=== PATIENT | male | born 1965 | race African-American/Black ===

== ENCOUNTER 2016-06-28 17:16 | Outpatient (CLI) | payer SELFPAY ==
--- NOTE | 2016-06-28 20:47 | RAD ---
RIGHT ANKLE THREE VIEWS 06/28/16 Comparison is made with the 06/05 study from [facility]. There has been an ORIF of a distal fibular fracture and screws reduce a medial malleolar fracture. T here has been no adverse change in alignment since the prior study. There is no sign of loosening of hardware. The overall appearance is an expected postoperative appearance. IMPRESSION: Postop ORIF with no adverse changes in the interval. POS: HOME
--- NOTE | 2016-06-28 21:25 | RAD ---
LEFT ELBOW TWO VIEWS 06/28/16 Comparison is made with a 06/05/16 study from [facility]. There has been an ORIF of comminuted fractures of the proximal ulna. There is no adverse change in a lignment over the interval. There is no sign of loosening of the plate. A small amount of callus is beginning to form but emphasis on very small. Bony fragments are seen around the joint, particularly medially as might be expected. IMPRESSION: Postop ORIF of comminuted proximal ulnar fracture. No adverse finding since the last study. POS: HOME
--- NOTE | 2016-06-28 21:37 | RAD ---
LEFT FEMUR TWO VIEWS 06/28/16 Comparison is made with a 06/05/16 study done at [facility]. There has been an ORIF of extensive comminuted distal femoral fractures. There has been no adverse c hange in alignment over the interval. There is no sign of loosening of the hardware. Some calcificat ion is forming along the medial aspect of the joint that could signify damage to the MCL. IMPRESSION: No adverse changes since the prior study. POS: HOME
== END 2016-06-28 17:17 | disposition home or self-care (01) ==
LOC: BURRAD 17:16
PROVIDERS: ATTEND Orthopaedic Surgery
DX: S72.92XD Unspecified fracture of left femur, subsequent encounter for closed fracture with routine healing (principal); S82.892D Other fracture of left lower leg, subsequent encounter for closed fracture with routine healing; S52.022D Displaced fracture of olecranon process without intraarticular extension of left ulna, subsequent encounter for closed fracture with routine healing

== ENCOUNTER 2016-07-16 16:18 | Outpatient (CLI) | payer SELFPAY ==
--- NOTE | 2016-07-16 19:28 | RAD ---
LEFT KNEE: Date: 07-16-16 FINDINGS: AP and lateral views are provided and compared with a 06-28-16 film of the femur. Any changes in the interval are minimal. The ORIF of the comminuted fracture of the distal femur sh ows no particular change in the interval. There is no sign of loosening of the hardware. The posit ion of the various fragments seems unchanged. Little internal healing of the fragments is apparent as of yet. There is ossification of the medial lateral ligament. The joint space seems normal. IMPRESSION: Minimal change in the appearance of the distal femoral fracture since 06-28. POS: HOME
== END 2016-07-16 16:19 | disposition home or self-care (01) ==
LOC: BURRAD 16:18
PROVIDERS: ATTEND Clinical Nurse Specialist Medical-Surgical
DX: Z91.81 History of falling (principal)

== ENCOUNTER 2018-05-14 04:43 | Emergency (ER) | payer OTHER, SELFPAY ==
[2018-05-14 05:23] LABS: Hemoglobin 13.4 g/dL (14.0-18.0); Mean Corpuscular Hemoglobin 28.4 pg (27.0-31.0); Mean Corpuscular Volume 83.5 fL (78.0-98.0); Mean Platelet Volume 7.5 fL (7.4-10.4); Platelet Count 354 thou/uL (130-400); RBC Distribution Width 12.8 % (11.5-14.5); Red Blood Cell (RBC) Count 4.72 mill/uL (4.70-6.10); White Blood Cell (WBC) Count 8.8 thou/uL (4.8-10.8)
[2018-05-14 05:29] LABS: ALT (SGPT) 13 U/L (8-55); AST (SGOT) 13 U/L (5-34); Albumin 4.3 g/dL (3.5-5.0); Alkaline Phosphatase 91 U/L (40-150); Anion Gap 14 mmol/L (10-20); BUN (Urea Nitrogen) 15 mg/dL (8.4-25.7); Bilirubin, Total 0.3 mg/dL (0.2-1.2); Calc. Creatinine Clearance 0 mL/min (70-130); Calcium 9.3 mg/dL (7.8-10.44); Carbon Dioxide 23 mmol/L (22-29); Chloride 108 mmol/L (98-107); Estimated GFR-MDRD Greater than 90; Globulin 3.1 g/dL (2.4-3.5); Glucose 107 mg/dL (70-105); Lipase 38 U/L (8-78); Potassium 4.1 mmol/L (3.5-5.1); Protein, Total 7.4 g/dL (6.0-8.3); Sodium 141 mmol/L (136-145)
[2018-05-14 05:48] LABS: Eosinophils 2 % (0-10); Lymphocytes 16 % (21-51); MDiff Complete? YES; Monocytes 5 % (0-10); Neutrophil 77 % (42-75)
--- NOTE | 2018-05-14 07:36 | RAD ---
PORTABLE CHEST: DATE: 05/14/2018. FINDINGS: Comparison is made with the prior study of 06/19/2016. The heart is normal in size. The mediastinum shows no widening or shift. No lobar consolidation or effusion was seen. There is evidence of old r ib fractures. Small nodules and similar pathology would be obscured on this portable film would best seen by CT. A vague nodular density in the left mid lung laterally was present previously and has n ot changed. IMPRESSION: Old findings, but no definite acute change. POS: HOME
== END 2018-05-14 06:05 | disposition short-term general hospital (02) ==
LOC: BURERS 04:43
DX: R07.2 Precordial pain (principal); F41.9 Anxiety disorder, unspecified; I10 Essential (primary) hypertension; F17.210 Nicotine dependence, cigarettes, uncomplicated; I25.2 Old myocardial infarction
CPT/HCPCS: 71045; 80053; 83690; 83880; 84484; 85025; 93005